=== PATIENT | male | born 1965 | race Caucasian/White ===

== ENCOUNTER 2016-12-11 08:05 | Emergency (ER) | payer BC, OTHER ==
[2016-12-11] MEDS ORDERED: MORPHINE SULFATE 10 MG/ML SOL IV ONE (08:11)
[2016-12-11] MEDS ORDERED: MORPHINE SULFATE 10 MG/ML SOL ONE (08:16)
[2016-12-11] MEDS ORDERED: NITROGLYCERIN 0.4 MG TAB SL ONE (08:16)
[2016-12-11] MEDS ORDERED: NITROGLYCERIN 0.4 MG TAB SL PRN (08:17)
[2016-12-11 08:18] LABS: BASOPHILS % (AUTO) 1 % (0-3); EOSINOPHILS % (AUTO) 1 % (0-9); HEMATOCRIT 41 % (39-53); MEAN CORPUSCULAR HGB CONC 34.6 gm/dl (32.0-36.0); MEAN CORPUSCULAR VOLUME 84 fL (80-100); MONOCYTES % (AUTO) 6.6 % (0-12); NEUTROPHILS % (AUTO) 60.4 % (37-80)
[2016-12-11 08:45] LABS: CALCIUM 8.7 mg/dl (8.5-10.1); GLOM FILT RATE 78 mL/min (>60); POTASSIUM 3.8 mMol/L (3.5-5.1); SODIUM 135 mMol/L (136-145)
[2016-12-11 08:49] VITALS: TEMP 98.7
[2016-12-11] MEDS ORDERED: KETOROLAC TROMETHAMINE 30 MG/ML SOL IV ONE (09:51)
[2016-12-11] MEDS ORDERED: KETOROLAC TROMETHAMINE 30 MG/ML SOL ONE (09:51)
[2016-12-11 11:55] VITALS: BP 161/73; PULSE 78; RESP 9; O2SAT 99
== END 2016-12-11 11:15 | disposition home or self-care (01) ==
LOC: ED 08:05
DX: S29.011A Strain of muscle and tendon of front wall of thorax, initial encounter (principal)
CPT/HCPCS: 71010; 80048; 84484; 85025; 93005; 96374; 96375; 99284; 99285; J1885; J2270